=== PATIENT | female | born 1990 | race African-American/Black ===

== ENCOUNTER 2017-12-04 17:05 | Emergency (ER) | payer OTHER ==
[~2017-12-04] VITALS: Ht 170.2 cm; Wt 81.7 kg
--- NOTE | ~2017-12-04 | EKG ---
[place] [address] [facility] [place] [address] ELECTROCARDIOGRAM REPORT Name: DANNY ACKERMAN Room #: [facility]#: [id number] Admission: 12/04/17 Attend Phys: Discharge: 12/04/17 Date of : 88 Report #: [id number] THIS REPORT FOR: //name// [facility] ED Test Date: 2017-12-04 Test Time: 17:09:46 Pat Name: DANNY ACKERMAN Department: Room: Gender: F Watermaster: [facility] : 1990 Requested By: Jennifer Menezes Order Number: [id number] MD: Jayden Beth Measurements Intervals [place] Rate: 71 P: 50 MI: 111 QRS: 35 QRSD: 99 T: 27 QT: 398 QTc: 433 Interpretive Statements Sinus rhythm Borderline short MI interval RSR' in V1 or V2, probably normal variant No previous ECG available for comparison Electronically Signed On 12-05-2017 8:08:06 SINGLE NEEDLE OPERATOR by Jayden Beth [email or web address] <ELECTRONICALLY SIGNED> By: Jayden Beth MD 12/05/17 0808 1709 1709 Jayden Beth MD /ZEINAB
[~2017-12-04 17:05] MED LIST: FLAGYL500 MG PO; PHENERGAN 25 MG25 M1 PO; PREDNISONE 10 M10 MG PO; ZOFRAN ODT4 MG PO
[2017-12-04] MEDS ORDERED: NAPROSYN500 MG PO (18:26)
== END 2017-12-04 18:38 | disposition home or self-care (01) ==
LOC: ER 17:05
DX: R07.89 Other chest pain (principal)